=== PATIENT | male | born 1960 | race Caucasian/White ===

== ENCOUNTER 2020-03-17 13:34 | Inpatient (IN) | payer BC, OTHER ==
[2020-03-17] MEDS ORDERED: fentaNYL Citrate/PF 2,000 MCG in Sodium Chloride 0.9% 60 ML IV SCH ×2 (14:01→17:39)
--- NOTE | 2020-03-17 14:19 | RAD ---
CHEST 1 VIEW: Date: 03/17/2020 HISTORY: Dyspnea. COMPARISON: None. FINDINGS: There is a right perihilar air space opacity. Heart size is enlarged. Small left effusion. Atelectati c changes both lung bases. Endotracheal tube tip above the stephon 1.5 cm. Enteric tube tip below the diaphragm, though out of fi eld of view. Right subclavian central venous catheter tip projects over the mid SVC. IMPRESSION: 1. Right perihilar and infrahilar air space opacity concerning for infection. 2. Small left effusion. 3. Lung hypoinflation with bibasilar atelectasis. 4. Endotracheal tube tip above the stephon 1.5 cm. 5. Enteric tube tip below diaphragm, though out of field of view. POS: HOME
[2020-03-17] MEDS ORDERED: Fentanyl 100 MCG/2 ML VIAL ONE (14:23)
[2020-03-17 14:44] LABS: Bacteria/HPF 2+ HPF (None Seen); Bilirubin Negative (Negative); Blood, Urine 3+ (Negative); Clarity Turbid (Clear); Glucose, Urine (Dipstick) Normal (Negative); Ketone, Urine Negative (Negative); Leukocyte 75 Leu/uL (Negative); Mucous/LPF Rare LPF (<2+); Nitrite Negative (Negative); Protein, Urine (Dipstick) 200 mg/dL (Neg-Trace); RBC/HPF Greater than 50 HPF (0-3); Squamous Epithelial 0-3 HPF (0-3); WBC/HPF 21-50 HPF (0-3); pH, Urine 5.5 (5.0-9.0)
[2020-03-17 15:05] LABS: Actual Bicarbonate (HCO3a) 17.2 mEq/L (22-28); Analyzer IN Cardio ER; Base Excess (BEa) -11.3 mEq/L (-2.0 to +3.0); CO2 Tension 50.1 mmHg (35.0-45.0); Calcium, Ionized (arterial) 1.19 mmol/L (1.12-1.30); Carboxyhemoglobin (COHb) 0.3 gm% (0.0-3.0); Hemoglobin (Hb) 11.3 g/dL (14.0-18.0); O2 Tension (PaO2), arterial 246.7 mmHg (80.0-100.0); Potassium - ABG Lab 4.87 mmol/L (3.70-5.30)
[2020-03-17 15:06] LABS: Puncture Site LRA; pH, Arterial 7.15 (7.35-7.45)
[2020-03-17 15:08] LABS: ALV-art Gradient 403.675 (0-20)
[2020-03-17 15:17] LABS: Actual Bicarbonate (HCO3a) 16.9 mEq/L (22-28); Analyzer IN Cardio ER; Base Excess (BEa) -8.6 mEq/L (-2.0 to +3.0); CO2 Tension 34.9 mmHg (35.0-45.0); Calcium, Ionized (arterial) 1.12 mmol/L (1.12-1.30); Carboxyhemoglobin (COHb) 0.1 gm% (0.0-3.0); Hemoglobin (Hb) 10.1 g/dL (14.0-18.0); O2 Tension (PaO2), arterial 148.1 mmHg (80.0-100.0); Potassium - ABG Lab 4.49 mmol/L (3.70-5.30)
[2020-03-17] MEDS ORDERED: Piperacillin/Tazobactam 4.5 GM VIAL ONE (15:17)
[2020-03-17 15:18] LABS: Hemoglobin 9.2 g/dL (14.0-18.0); Mean Corpuscular HGB CONC 30.2 g/dL (32.0-36.0); Mean Corpuscular Hemoglobin 25.4 pg (27.0-31.0); Mean Corpuscular Volume 84.3 fL (78.0-98.0); Mean Platelet Volume 10.4 fL (7.4-10.4); Platelet Count 182 thou/uL (130-400); RBC Distribution Width 19.1 % (11.5-14.5); Red Blood Cell (RBC) Count 3.62 mill/uL (4.70-6.10)
[2020-03-17 15:21] LABS: ALV-art Gradient 307.375 (0-20); Puncture Site LRA
[2020-03-17] MEDS ORDERED: Sodium Bicarb 50 MEQ/50 ML Abboject 8.4% SYRINGE ONE (15:21)
[2020-03-17 15:24] LABS: SARS-CoV-2 NAA Rapid Test Not Detected (NotDetected)
[2020-03-17 15:37] LABS: ALT (SGPT) 58 U/L (8-55); AST (SGOT) 19 U/L (5-34); Albumin 3.1 g/dL (3.5-5.0); Alkaline Phosphatase 119 U/L (40-110); Anion Gap 15 mmol/L (10-20); Anisocytosis SLIGHT = 6-15 cells (100X) (0-5/hpf); BUN (Urea Nitrogen) 57 mg/dL (8.4-25.7); Band 10 % (5-11); Bilirubin, Total 0.5 mg/dL (0.2-1.2); Calc. Creatinine Clearance 0 mL/min (70-130); Calcium 7.8 mg/dL (7.8-10.44); Carbon Dioxide 18 mmol/L (22-29); Chloride 106 mmol/L (98-107); Estimated GFR-MDRD 25; Globulin 3.4 g/dL (2.4-3.5); Glucose 135 mg/dL (70-105); Hypochromia SLIGHT = 6-15 cells (100X) (0-5/hpf); Lymphocytes 2 % (21-51); MDiff Complete? YES; Monocytes 7 % (0-10); Neutrophil 81 % (42-75); Platelet Morphology Comment Appears Adequate; Polychromasia SLIGHT = 2-3 cells (100X) (0-2/hpf); Potassium 4.6 mmol/L (3.5-5.1); Protein, Total 6.5 g/dL (6.0-8.3); Sodium 134 mmol/L (136-145); Target Cells SLIGHT = 2-5 cells (100X) (0-1/hpf)
[2020-03-17] MEDS ORDERED: Iopamidol-370 76% 500 ML 1 ML ONE (15:45)
[2020-03-17 16:03] LABS: CKMB 2.8 ng/mL (0-6.6)
--- NOTE | 2020-03-17 16:49 | CT ---
CT ANGIOGRAM THORAX WITH IV CONTRAST AND 3-D RECONSTRUCTIONS CLINICAL INDICATION: Respiratory distress. Patient intubated. Decreased level of responsiveness. COMPARISON: None FINDINGS: Pulmonary arteries: No filling defects are seen in the pulmonary arteries to suggest a pulmonary embo rojelio. Aorta: Not well opacified as this study was performed for evaluation of the pulmonary arteries. Thora cic aorta is normal in caliber. Vascular calcifications are seen at the aortic arch. Lungs: There is bibasilar consolidation. Findings may be related to bibasilar pneumonia or aspiration pneumonitis. Mild interstitial and patchy densities are also seen in the right perihilar location. A calcified granuloma is seen in the posterior medial right upper lobe. Mediastinum: Endotracheal tube is noted in place with the tip at the level of the stephon. Nasogastric tube is noted in place which courses into the left upper quadrant on the debt collector image. The heart is mildly enlarged. Thyroid gland: Incompletely imaged hypodense nodule right lobe of thyroid gland with peripheral calci fication. Osseous structures: Mild degenerative changes in the thoracic spine. Chest wall: No abnormality visualized. Upper abdomen: Partially is otherwise abdominal structures in the upper abdomen demonstrate a grossly normal CT appearance for phase of imaging. IMPRESSION: 1. Bibasilar consolidation with interstitial and patchy densities in the right perihilar region. Find ings may be secondary to bibasilar pneumonia, but aspiration pneumonitis is a possibility. Follow-up to resolution is recommended. 2. Cardiomegaly. 3. No CT evidence for pulmonary embolus. 4. Endotracheal tube and nasogastric tubes are noted in place. Tip of the endotracheal tube is at the level of the stephon. The endotracheal tube should be slightly withdrawn. 5. Incompletely imaged peripherally calcified hypodense nodule right lobe of the thyroid gland. Follo w-up thyroid ultrasound is suggested.
[2020-03-17] MEDS ORDERED: Bacteriostatic Water 30 ML VIAL FS PRN (16:56)
--- NOTE | 2020-03-17 17:09 | CT ---
CT ABDOMEN WITH CONTRAST CT PELVIS WITH CONTRAST: DATE: 03/17/2020 HISTORY: 59-year-old male with no history available pertinent to the abdomen and pelvis provided, other than h ypercholesterolemia COMPARISON: None TECHNIQUE: IV injection of iodinated contrast media: administered. Oral contrast media:Not administered FINDINGS: The median arcuate ligament impinges on the origin of the celiac artery, causing high-grade stenosis there. There are consolidations at the posterior bases of bilateral lower lobes, with air bronchograms. No p leural effusion. No pneumoperitoneum, ascites, small bowel dilation, or colonic diverticulitis. Difficult to identify the appendix with certainty along adjacent collapsed ileal loops. No abdominal aortic aneurysm or dissection. No hydronephrosis. Cholecystectomy clips. Slightly diffusely low hepatic attenuation suggestive of fatty liver. Nodular liver margins consistent with cirrhosis. No acute pathology identified involving pancreas. No hydronephrosis. No adrenal nodule. No splenomegaly. IMPRESSION: 1) no acute findings within the abdominal or pelvic cavity. 2) bilateral lower lobe consolidations 3) probable hepatic cirrhosis. 4) suspicious for Median arcuate ligament syndrome.
[2020-03-17] MEDS ORDERED: Electrolyte Replacement Protoc 1 EACH EACH IVPB PRN (17:30)
[2020-03-17] MEDS ORDERED: Ventilator Sedation Protocol 1 EACH FS SCH (17:30)
[2020-03-17] MEDS ORDERED: Bisacodyl 5 MG TAB PO PRN (17:30)
[2020-03-17] MEDS ORDERED: Milk Of Magnesia 30 ML UDCUP PO PRN (17:30)
[2020-03-17] MEDS ORDERED: DISCONTINUE PREVIOUS NARCOTIC PAIN MEDICATIONS AND BENZODIAZEPINES FS SCH (17:39)
[2020-03-17] MEDS ORDERED: Fentanyl BOLUS 250 ML IVPB PRN (17:39)
[2020-03-17] MEDS ORDERED: Propofol 1,000 MG/100 ML VIAL IV PRN (17:39)
[2020-03-17] MEDS ORDERED: Morphine 2 MG/ML VIAL SLOW IVP PRN (17:39)
[2020-03-17] MEDS ORDERED: Propofol BOLUS 1,000 MG/100 ML VIAL IV PRN (17:39)
[2020-03-17] MEDS ORDERED: Lorazepam 2 MG/ML VIAL SLOW IVP PRN (17:39)
[2020-03-17 17:57] LABS: Troponin I 0.075 ng/mL (< 0.028)
[2020-03-17] MEDS: Azithromycin 500 MG in Sodium Chloride 0.9% 250 ML 250 ML IVPB SCH (18:10)
[2020-03-17] MEDS: cefTRIAXone\\ROCEPHIN 1 GM in Sodium Chloride 0.9% 100 ML IVPB SCH (18:11)
[2020-03-17] MEDS: methylPREDNISolone Sod Succ 40 MG VIAL IVP SCH ×2 (18:12→23:32)
[2020-03-17] MEDS: Sodium Chloride 0.9% 1,000 ML IV SCH (18:13)
[2020-03-17] MEDS ORDERED: Vancomycin 1 GM in Premix Bag 1 BAG IVPB SCH (20:00)
[2020-03-17] MEDS: Heparin 5,000 UNITS/ML VIAL SC SCH (20:28)
[2020-03-17 20:43] LABS: Troponin I 0.073 ng/mL (< 0.028)
[2020-03-17] MEDS ORDERED: Famotidine/PF 20 mg/2ml Vial SLOW IVP SCH (21:00)
[2020-03-17] MEDS ORDERED: Piperacillin/Tazobactam 3.375 GM in Sodium Chloride 0.9% 100 ML IVPB SCH (21:00)
--- NOTE | 2020-03-18 00:43 | CON ---
DATE OF CONSULTATION: HISTORY OF PRESENT ILLNESS: Cole Huynh is a 59-year-old obese gentleman from [place], [place], was transferred, to be intubated on the vent. I spoke to his , telephone #[phone]. She states the patient for the last several days had been having progressive shortness of breath, cough, and fever. He has had a stroke in 2013. 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 He has limitation with activity, longstanding history of tobacco abuse, most recently just slowed on his smoking. Previous history of pneumonia but no history of TB or asthma. Over the last several days, he got progressively more short of breath. I guess he presented to the ER in [place], [place], intubated shortly thereafter. Apparently, they said his influenza B titer was positive there. Repeat test here for influenza B, A and coronavirus all negative. He is on fentanyl drip. Sedated today. His is going to talk to the nurse and give the list of medicine. PAST MEDICAL HISTORY: CVA, COPD, CHF, peripheral neuropathy. Legally blind. He apparently has a diagnosis sleep apnea, but apparently no CPAP machine at home. PREVIOUS SURGERIES: Appendix mainly. No recent surgery. REVIEW OF SYSTEMS: Otherwise, unobtainable. PHYSICAL EXAMINATION: VITAL SIGNS: His sats are 92, blood pressure 120/70, pulse 72, respiratory rate of 12. CHEST: No wheezing. No crackles. CARDIAC: Normal S1, S2. No gallops. ABDOMEN: No masses. DIAGNOSTIC STUDIES: He had chest x-ray which showed cardiomegaly, left pleural effusion, right-sided infiltrates. CT angio showed bibasilar consolidation, cardiomegaly, no PE. LABORATORY DATA: His labs showed white count 21,000, H and H 9 and 30, platelet count 82. Urine shows infection. PO2 is 148, pCO2 is 34%, pH of 7.30 on 70%, PEEP of 7, creatinine 2.6, BUN 57, BNP 128. ASSESSMENT: 1. Respiratory failure, pneumonia. 2. Congestive heart failure. 3. Renal failure. 4. Peripheral neuropathy, history of stroke. Antibiotics, steroids, neb treatment initiated. We will get a list of his medicine from home and hopefully, we can start weaning the next several days. This is a 45-minute critical care time. Job ID: [id number]
--- NOTE | 2020-03-18 01:38 | HP ---
CHIEF COMPLAINT: Shortness of breath. HISTORY OF PRESENT ILLNESS: The patient is a 59-year-old male who was transferred from an outside facility for respiratory failure. The patient apparently appears to initially come into the ER at 7 a.m. from [place], [place], with complaints of shortness of breath. At this time, the patient's shortness of breath worsened. He went into respiratory distress and was intubated at [place], [place]. The patient was then transferred over here for further evaluation. Over in [place], [place], the patient was known to have a white count of 23,000. It appears the lactic acid was 16. The patient's blood cultures were done. He was also checked for flu, which was influenza B positive. However, his COVID rapid test was negative. PAST MEDICAL HISTORY: It appears that the patient has a history of strokes, has a history of hypertension, also has a history of heart failure and ME in spring, and hyperlipidemia. 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 SURGICAL HISTORY: He is legally blind, and has cardiac stent and cholecystectomy. SOCIAL HISTORY: He smokes apparently half a pack a day. Quit alcohol about 10 to 15 years ago. No recreational drug use. FAMILY HISTORY: No history of heart disease or strokes. REVIEW OF SYSTEMS: Unable to obtain. The patient is intubated. MEDICATIONS: Unable to obtain. The patient is intubated. LABORATORY DATA: Sodium of 134, potassium of 4.6, BUN of 57, creatinine was 2.65. Troponin x1 is 0.073. AST is 19, ALT is 58, alkaline phos is 119. TSH is 1.4. His lactic acid now is 0.9. His blood gas indicates the pH of 7.15, pCO2 of 50, pO2 of 246. This is on 5 of PEEP and 100% O2. WBCs of 21.0, hemoglobin of 9.2, hematocrit of 30.5, platelets of 182. His bands are 10. He had an occult done, was negative. He had a CT head, which was done which was negative. There was some concern for possible slurred speech. There was an x-ray that was done that showed some maybe diffuse pneumonitis on the right side. PHYSICAL EXAMINATION: VITAL SIGNS: Temperature of 98.8, heart rate of 69, 120/90, 100% oxygenation. GENERAL: He is intubated, sedated. HEENT: Pupils are pinpoint, but reactive bilaterally. CV: S1, S2 present. Regular. LUNGS: Clear to auscultation. No rhonchi or wheezes noted. ABDOMEN: Obese. Bowel sounds are present x2. EXTREMITIES: Mild to 1+ edema. Pedal pulses are present x2. NEUROVASCULAR: Unable to do since the patient is intubated. SKIN: Just minor cuts and bruises noted to bilateral lower extremities. ASSESSMENT AND PLAN: The patient is a 59-year-old male who initially presented to the hospital with respiratory failure. 1. Acute hypoxic hypercapnic respiratory failure. The patient was intubated in the field possibly most likely from pneumonia. Pulmonology has been consulted. The patient also has been started on some steroids. His coronavirus disease x2 rapid test including here and at the other hospital were negative. His influenza B was positive at the other hospital, however, here it was negative. He did have a CTA, which was negative for PE. However, it did indicate that the patient had bibasilar consolidation with interstitial patchy densities and right perihilar regional finding consistent with bibasilar pneumonia and possible concern of aspiration pneumonitis also. Cardiomegaly also was noted. The patient was started by Pulmonology with community-acquired pneumonia antibiotics. Steroids were also started. We will also do an echocardiogram. 2. Leukocytosis most likely secondary to the pneumonia. We will continue to monitor. 3. Anemia. His occult was negative. His MCV was normal. Unclear if this is a new or an ongoing process. 4. Chronic kidney disease. Unknown the patient's baseline creatinine. It was 2.25 at the outside hospital. We will start him on some gentle hydration, Garces catheter. Monitor intake and output. 5. Deep venous thrombosis prophylaxis. We will put the patient on subcutaneous heparin. 6. Mildly elevated troponins. This could be secondary to demand related. We will trend the troponins. EKG did not show any acute abnormalities, and also echocardiogram has been ordered for this patient. Job ID: [id number]
[2020-03-18 04:27] LABS: #Lymphocytes 0.5 thou/uL (1.20-3.40); #Monocytes 0.3 thou/uL (0.11-0.59); #Neutrophils 13.1 thou/uL (1.40-6.50); %Lymphocytes 3.5 % (21.0-51.0); %Monocytes 1.9 % (0.0-10.0); %Neutrophils 94.5 % (42.0-75.0); Hemoglobin 9.6 g/dL (14.0-18.0); Mean Corpuscular HGB CONC 29.1 g/dL (32.0-36.0); Mean Corpuscular Hemoglobin 24.5 pg (27.0-31.0); Mean Corpuscular Volume 84.1 fL (78.0-98.0); Mean Platelet Volume 10.8 fL (7.4-10.4); Platelet Count 180 thou/uL (130-400); RBC Distribution Width 18.9 % (11.5-14.5); Red Blood Cell (RBC) Count 3.91 mill/uL (4.70-6.10); White Blood Cell (WBC) Count 13.9 thou/uL (4.8-10.8)
[2020-03-18 04:45] LABS: ALT (SGPT) 52 U/L (8-55); AST (SGOT) 16 U/L (5-34); Alkaline Phosphatase 114 U/L (40-110); Anion Gap 14 mmol/L (10-20); BUN (Urea Nitrogen) 55 mg/dL (8.4-25.7); Bilirubin, Total 0.5 mg/dL (0.2-1.2); Calc. Creatinine Clearance 43 mL/min (70-130); Calcium 7.8 mg/dL (7.8-10.44); Carbon Dioxide 19 mmol/L (22-29); Chloride 106 mmol/L (98-107); Estimated GFR-MDRD 25; Globulin 3.6 g/dL (2.4-3.5); Glucose 149 mg/dL (70-105); Potassium 4.5 mmol/L (3.5-5.1); Protein, Total 6.6 g/dL (6.0-8.3); Sodium 134 mmol/L (136-145)
[2020-03-18] MEDS: methylPREDNISolone Sod Succ 40 MG VIAL IVP SCH ×3 (05:31→17:19)
[2020-03-18] MEDS: Sodium Chloride 0.9% 1,000 ML IV SCH ×2 (05:32→20:29)
[2020-03-18 07:57] LABS: Actual Bicarbonate (HCO3a) 21.7 mEq/L (22-28); Base Excess (BEa) -2.5 mEq/L (-2.0 to +3.0); CO2 Tension 35.6 mmHg (35.0-45.0); Calcium, Ionized (arterial) 1.11 mmol/L (1.12-1.30); Carboxyhemoglobin (COHb) 1.3 gm% (0.0-3.0); O2 Tension (PaO2), arterial 146.5 mmHg (80.0-100.0)
[2020-03-18 08:01] LABS: Puncture Site L.R.
--- NOTE | 2020-03-18 08:18 | RAD ---
CHEST 1 VIEW: INDICATION: History of intubation. COMPARISON: Prior study dated 03/17/2020. IMPRESSION: Tubes and lines are stable-appearing. Right perihilar airspace opacities persist. No pneumothorax i s evident. POS: BH
--- NOTE | 2020-03-18 08:26 | PRG ---
DATE OF SERVICE: 03/18/2020 SUBJECTIVE: Cole Huynh is a 59-year-old gentleman. This morning, he is sedated on the vent. Once sedation is withheld, he is more appropriate. He moves all 4 extremities. OBJECTIVE: VITAL SIGNS: Pulse 71, blood pressure 131/100, saturations 90%, respirations 18. CHEST: Decreased breath sounds. No wheezing. CARDIAC: Normal S1 and S2. No gallops. ABDOMEN: No masses. LABORATORY DATA: PO2 of 148, pCO2 of 34, pH 7.39, 60%, and PEEP of 5. His creatinine is 2, BUN is 55. His white count 13,000, slight left shift. X-ray shows a left pleural effusion, right lung pneumonia. ASSESSMENT: 1. Respiratory failure, chronic obstructive pulmonary disease, congestive heart failure. 2. Right lung pneumonia. 3. Cerebrovascular accident. PLAN: We are trying to get his medication from home. His is to his medication. The patient was transferred from out of the local area. We will try to continue antibiotics and steroids. Await for the echo. One-half hour of critical care time. Job ID: [id number]
[2020-03-18] MEDS ORDERED: Prevnar 13-Val Conj/PF 0.5 ML SYRINGE IM ONE (09:00)
[2020-03-18] MEDS ORDERED: DC Sedation Protocol FS ONE (09:21)
[2020-03-18] MEDS ORDERED: Lorazepam 2 MG/ML VIAL ONE (12:14)
[2020-03-18] MEDS ORDERED: Haloperidol Lactate 5 MG/ML VIAL ONE (12:22)
[2020-03-18] MEDS ORDERED: Haloperidol Lactate 5 MG/ML VIAL SLOW IVP SCH (12:30)
[2020-03-18] MEDS: Heparin 5,000 UNITS/ML VIAL SC SCH ×3 (14:24→20:29)
[2020-03-18] MEDS: TICAGRELOR 90 MG TABLET PO SCH ×2 (15:54→20:30)
[2020-03-18] MEDS: cefTRIAXone\\ROCEPHIN 1 GM in Sodium Chloride 0.9% 100 ML IVPB SCH (16:57)
[2020-03-18] MEDS: Azithromycin 500 MG in Sodium Chloride 0.9% 250 ML 250 ML IVPB SCH (17:18)
--- NOTE | 2020-03-18 17:48 | PDOC.HOSPP ---
- Subjective Encounter Date: 03/18/20 Encounter Time: 15:50 Subjective: pt up in bed drowsy - Objective Vital Signs & Weight: Vital Signs (12 hours) Temp Pulse Resp BP Pulse Ox 03/18/20 12:00 97.1 F L 03/18/20 09:21 86 26 H 92 L 03/18/20 08:03 71 136/110 H 03/18/20 08:00 16 98 03/18/20 07:44 71 20 131/106 H 99 03/18/20 07:00 96.9 F L 03/18/20 06:00 20 Weight Weight 3.517 oz Most Recent Monitor Data Heart Rate from ECG 77 NIBP 132/97 NIBP BP-Mean 108 Respiration from ECG 19 SpO2 99 I&O: 03/17/20 03/18/20 03/19/20 06:59 06:59 06:59 Intake Total 1311.4 7.8 Output Total 1200 865 Balance 111.4 -857.2 Result Diagrams: 03/18/20 03:40 03/18/20 03:40 Hospitalist ROS - Medication Medications: Active Medications Generic Name Dose Route Start Last Admin Trade Name Freq PRN Reason Stop Dose Admin Albuterol/Ipratropium 3 ml 03/17/20 19:00 03/18/20 13:10 Duoneb NEB Not Given [id number] TITUS Heparin Sodium (Porcine) 5,000 units 03/17/20 21:00 03/18/20 14:25 Heparin SC Not Given TID TITUS Sodium Chloride 1,000 mls @ 75 mls/hr 03/17/20 16:45 03/18/20 05:32 Normal Saline 0.9% IV 1,000 mls .[id number] TITUS Administration Azithromycin 500 mg/ Sodium 250 mls @ 250 mls/hr 03/17/20 18:00 03/18/20 17: 18 Chloride IVPB 250 mls 1800 TITUS Administration Ceftriaxone Sodium 1 gm/ 100 mls @ 200 mls/hr 03/17/20 17:00 03/18/20 16:57 Sodium Chloride IVPB 100 mls 1700 TITUS Administration Dexmedetomidine HCl 400 mcg/ 100 mls @ 0 mls/hr 03/18/20 12:30 03/18/20 12:48 Sodium Chloride IVPB 100 mls INF TITUS Administration Protocol Titrate Methylprednisolone Sodium Succinate 40 mg 03/17/20 18:00 03/18/20 17:19 Solu-Medrol IVP 40 mg Q6HR TITUS Administration Ticagrelor 90 mg 03/18/20 15:00 03/18/20 15:54 Brilinta PO Not Given TID TITUS - Exam Heart: negative: RRR, no murmur, no gallops, no rubs, normal peripheral pulses, irregular, diminshed peripheral pulses, murmur present, II/IV, III/IV Respiratory: negative: CTAB, no wheezes, no rales, no ronchi, normal chest expansion, no tachypnea, normal percussion, rales, rhonchi, tachypneic, wheezes Gastrointestinal: negative: soft, non-tender, non-distended, normal bowel sounds , no palpable masses, no hepatomegaly, no splenomegaly, no bruit, no guarding, no rigidity, tender to palpation, distended, diminished bowl sounds, voluntary guarding Hosp A/P (1) Acute respiratory failure with hypoxia and hypercapnia Code(s): J96.01 - ACUTE RESPIRATORY FAILURE WITH HYPOXIA; J96.02 - ACUTE RESPIRATORY FAILURE WITH HYPERCAPNIA Status: Acute (2) Pneumonia Code(s): J18.9 - PNEUMONIA, UNSPECIFIED ORGANISM Status: Acute (3) CAD (coronary artery disease) Code(s): I25.10 - ATHSCL HEART DISEASE OF [place] CORONARY ARTERY W/O ANG PCTRS Status: Acute (4) HTN (hypertension) Code(s): I10 - ESSENTIAL (PRIMARY) HYPERTENSION Status: Acute (5) CKD (chronic kidney disease) stage 3, GFR 30-59 ml/min Code(s): N18.3 - CHRONIC KIDNEY DISEASE, STAGE 3 (MODERATE) Status: Acute - Plan pt extubated today, got violent and had to be restraint and he was given some ativan. will continue abx for now. Renal function stable. pt on brilinta will continue.
[2020-03-18] MEDS: Carvedilol 25 MG TAB PO SCH (20:29)
[2020-03-18] MEDS: Gabapentin 300 MG CAP PO SCH (20:30)
[2020-03-18] MEDS ORDERED: Famotidine/PF 20 mg/2ml Vial SLOW IVP SCH (21:00)
[2020-03-18] MEDS ORDERED: Furosemide 40 MG TAB PO SCH (21:00)
[2020-03-19] MEDS: methylPREDNISolone Sod Succ 40 MG VIAL IVP SCH ×2 (00:16→05:16)
[2020-03-19] MEDS: Haloperidol Lactate 5 MG/ML VIAL SLOW IVP PRN ×2 (00:16→04:03)
[2020-03-19 05:05] LABS: #Lymphocytes 0.6 thou/uL (1.20-3.40); #Monocytes 0.5 thou/uL (0.11-0.59); #Neutrophils 10.6 thou/uL (1.40-6.50); %Eosinophils 0.1 % (0.0-10.0); %Lymphocytes 4.9 % (21.0-51.0); %Neutrophils 90.9 % (42.0-75.0); Hemoglobin 9.9 g/dL (14.0-18.0); Mean Corpuscular HGB CONC 28.9 g/dL (32.0-36.0); Mean Corpuscular Hemoglobin 24.2 pg (27.0-31.0); Mean Corpuscular Volume 83.6 fL (78.0-98.0); Mean Platelet Volume 11.2 fL (7.4-10.4); Platelet Count 193 thou/uL (130-400); RBC Distribution Width 18.7 % (11.5-14.5); White Blood Cell (WBC) Count 11.6 thou/uL (4.8-10.8)
[2020-03-19 05:14] LABS: ALT (SGPT) 48 U/L (8-55); AST (SGOT) 21 U/L (5-34); Albumin 3.3 g/dL (3.5-5.0); Alkaline Phosphatase 105 U/L (40-110); Anion Gap 18 mmol/L (10-20); BUN (Urea Nitrogen) 61 mg/dL (8.4-25.7); Bilirubin, Total 0.4 mg/dL (0.2-1.2); Calc. Creatinine Clearance 0 mL/min (70-130); Calcium 8.4 mg/dL (7.8-10.44); Carbon Dioxide 17 mmol/L (22-29); Chloride 110 mmol/L (98-107); Estimated GFR-MDRD 26; Globulin 3.6 g/dL (2.4-3.5); Glucose 177 mg/dL (70-105); Potassium 4.6 mmol/L (3.5-5.1); Protein, Total 6.9 g/dL (6.0-8.3); Sodium 140 mmol/L (136-145)
[2020-03-19] MEDS: Sodium Chloride 0.9% 1,000 ML IV SCH (08:22)
[2020-03-19] MEDS ORDERED: NIFEdipine XL 30 MG TAB PO SCH ×2 (09:00→13:30)
--- NOTE | 2020-03-19 09:07 | PRG ---
DATE OF SERVICE: 03/19/2020 SUBJECTIVE: Cole Huynh this morning is in the ICU. He is on restraints. He was agitated yesterday, requiring Haldol and Precedex to control his agitation. OBJECTIVE: VITAL SIGNS: Saturations are 100%, he is on BiPAP. Pulse is 82, blood pressure 150/80, and respirations 16. His I's and O's have been positive. CHEST: Decreased breath sounds. No wheezing. CARDIAC: Normal S1 and S2. No gallops. ABDOMEN: No masses. LABORATORY DATA: BUN and creatinine 61 and 2.59 and albumin 3.3. IMPRESSION: Congestive heart failure, ejection fraction 20%, metabolic encephalopathy, chronic obstructive pulmonary disease, pneumonia, and azotemia. PLAN: Switch him over to oral antibiotics, steroids, PT, supportive care. Hopefully, if his nauseous status improves, he can be transferred out of the ICU and eventually home. One-half hour of critical care time. Job ID: [id number]
--- NOTE | 2020-03-19 09:44 | RAD ---
Chest one view HISTORY: Dyspnea. Follow-up. COMPARISON: 03/18/2020. FINDINGS: Cardiac silhouette is magnified and upper limits of normal in size. Pulmonary vasculature a re less engorged than on the prior study. Mild patchy bibasilar infiltrates are less dense. Mediastinum is midline. Endotracheal catheter and nasogastric tube no longer visible. Right subclavia n central venous catheter remains in place. No evidence of pneumothorax. IMPRESSION : Interval removal of the endotracheal catheter and nasogastric tube. Partial clearing of bibasilar infiltrates and pulmonary vascular congestion.
[2020-03-19] MEDS: Heparin 5,000 UNITS/ML VIAL SC SCH ×3 (09:50→20:55)
[2020-03-19] MEDS: TICAGRELOR 90 MG TABLET PO SCH ×3 (09:51→20:54)
[2020-03-19] MEDS: Cefdinir 300 MG CAP PO SCH ×2 (09:51→20:55)
[2020-03-19] MEDS: DULoxetine 60 MG CAP PO SCH (09:51)
[2020-03-19] MEDS: Gabapentin 300 MG CAP PO SCH ×3 (09:51→20:55)
[2020-03-19] MEDS: Carvedilol 25 MG TAB PO SCH ×2 (09:55→20:55)
--- NOTE | 2020-03-19 09:59 | CON ---
DATE OF CONSULTATION: 03/19/2020 REASON FOR CONSULTATION: Coronary artery disease, congestive heart failure, pneumonia, confusion. HISTORY OF PRESENT ILLNESS: Mr. Huynh is a 59-year-old gentleman with history apparently of coronary artery disease and coronary stenting, admitted to the hospital with difficulty of breathing, respiratory failure. He presented in [place], [place], but apparently the usual place he is care for did not have beds, therefore he was sent here. His white count was 23,000 and high lactic acid. Influenza B was positive. COVID test was negative. PAST HISTORY: History of hypertension, heart failure, myocardial infarction in 2019, chronic renal failure. Reportedly legally blind. PAST SURGICAL HISTORY: Has previous coronary stent, details not available. SOCIAL HISTORY: Smokes half-pack cigarettes per day. FAMILY HISTORY: Negative for heart disease or strokes. REVIEW OF SYSTEMS: Unobtainable. He is confused and disoriented. MEDICATIONS: See nurses' note. PERTINENT LABORATORY: On the rhythm strip, it is normal sinus rhythm. I do not see an EKG in the chart. Hemoglobin is 9.9. Creatinine is 2.59, estimated GFR is 26. Troponin 0.075. BNP 1287. Chest x-ray, right perihilar space opacity. The patient is confused and disoriented, unable to take oral medicines this morning, became combative yesterday. ASSESSMENT: 1. Thought to have pneumonia. 2. History of congestive heart failure. 3. Renal failure, stage 4. 4. Confusion and disorientation. PLAN: Hopefully, the patient can be put back on his oral medicines. Prognosis is guarded with severe multiple medical problems. No other recommendations presently. We will try to either find the previous EKG or do another this morning. Job ID: [id number]
[2020-03-19] MEDS ORDERED: Lisinopril 10 MG TAB PO SCH (12:30)
[2020-03-19] MEDS: hydrALAZINE 20 MG/ML VIAL SLOW IVP PRN (13:06)
--- NOTE | 2020-03-19 18:29 | PDOC.HOSPP ---
- Subjective Encounter Date: 03/19/20 Encounter Time: 11:15 Subjective: pt on bipap - Objective Vital Signs & Weight: Vital Signs (12 hours) Temp Pulse Resp BP Pulse Ox 03/19/20 15:00 97.8 F 03/19/20 14:50 63 03/19/20 14:03 63 18 100 03/19/20 14:02 65 18 100 03/19/20 13:07 136/110 H 03/19/20 13:06 62 03/19/20 12:00 97.2 F L 03/19/20 09:52 62 03/19/20 08:31 62 20 100 03/19/20 08:29 62 23 H 100 03/19/20 08:00 95 03/19/20 07:00 97.6 F Weight Weight 3.517 oz Most Recent Monitor Data Heart Rate from ECG 65 NIBP 124/91 NIBP BP-Mean 102 Respiration from ECG 16 SpO2 99 I&O: 03/18/20 03/19/20 03/20/20 06:59 06:59 06:59 Intake Total 1311.4 2392.8 1464 Output Total 1200 1500 780 Balance 111.4 892.8 684 Result Diagrams: 03/19/20 04:32 03/19/20 04:32 Hospitalist ROS - Review of Systems Other: on bipap - Medication Medications: Active Medications Generic Name Dose Route Start Last Admin Trade Name Freq PRN Reason Stop Dose Admin Albuterol/Ipratropium 3 ml 03/17/20 19:00 03/19/20 14:02 Duoneb NEB 3 ml [id number] TITUS Administration Carvedilol 25 mg 03/18/20 21:00 03/19/20 09:55 Coreg PO 25 mg BID TITUS Administration Cefdinir 300 mg 03/19/20 09:00 03/19/20 09:51 Omnicef PO 300 mg BID TITUS Administration Duloxetine HCl 60 mg 03/19/20 09:00 03/19/20 09:51 Cymbalta PO 60 mg DAILY TITUS Administration Gabapentin 600 mg 03/18/20 21:00 03/19/20 14:51 Neurontin PO 600 mg TID TITUS Administration Haloperidol Lactate 5 mg 03/18/20 12:27 03/19/20 04:03 Haldol SLOW IVP 5 mg Q4H PRN Administration Agitation Heparin Sodium (Porcine) 5,000 units 03/17/20 21:00 03/19/20 14:51 Heparin SC 5,000 units TID TITUS Administration Hydralazine HCl 10 mg 03/19/20 12:23 03/19/20 13:06 Apresoline SLOW IVP 10 mg Q4H PRN Administration Blood Pressure Dexmedetomidine HCl 400 mcg/ 100 mls @ 0 mls/hr 03/18/20 12:30 03/19/20 15:28 Sodium Chloride IVPB 100 mls INF TITUS Administration Protocol Titrate Pantoprazole Sodium 40 mg 03/18/20 21:00 03/19/20 09:51 Protonix PO 40 mg BID TITUS Administration Ticagrelor 90 mg 03/18/20 15:00 03/19/20 14:51 Brilinta PO 90 mg TID TITUS Administration - Exam Neck: negative: supple, symmetric, no JVD, no thyromegaly, no lymphadenopathy, no carotid bruit, JVD Heart: negative: RRR, no murmur, no gallops, no rubs, normal peripheral pulses, irregular, diminshed peripheral pulses, murmur present, II/IV, III/IV Respiratory: rales Gastrointestinal: negative: soft, non-tender, non-distended, normal bowel sounds , no palpable masses, no hepatomegaly, no splenomegaly, no bruit, no guarding, no rigidity, tender to palpation, distended, diminished bowl sounds, voluntary guarding Hosp A/P (1) Acute respiratory failure with hypoxia and hypercapnia Code(s): J96.01 - ACUTE RESPIRATORY FAILURE WITH HYPOXIA; J96.02 - ACUTE RESPIRATORY FAILURE WITH HYPERCAPNIA Status: Acute (2) Pneumonia Code(s): J18.9 - PNEUMONIA, UNSPECIFIED ORGANISM Status: Acute (3) CAD (coronary artery disease) Code(s): I25.10 - ATHSCL HEART DISEASE OF [place] CORONARY ARTERY W/O ANG PCTRS Status: Acute (4) HTN (hypertension) Code(s): I10 - ESSENTIAL (PRIMARY) HYPERTENSION Status: Acute (5) CKD (chronic kidney disease) stage 3, GFR 30-59 ml/min Code(s): N18.3 - CHRONIC KIDNEY DISEASE, STAGE 3 (MODERATE) Status: Acute - Plan pt extubated today, got violent and had to be restraint and he was given some ativan. will continue abx for now. Renal function stable. pt on brilinta will continue. 03/19 pt on precedex since he is combative. BNP is elevated but he is on lasix. cardiology consulted. creatinine is slowly trending down. Not sure pt's baseline. will stop lisinopril given his aisha. not sure about his baseline. spoke with and asked her to get recent lab work from her pcp's office.
[2020-03-19] MEDS: risperiDONE 0.25 MG TAB PO SCH (20:54)
[2020-03-19] MEDS: Atorvastatin Calcium 40 MG TAB PO SCH (20:54)
[2020-03-19] MEDS: hydrALAZINE 25 MG TAB PO SCH (20:54)
[2020-03-19] MEDS: Sodium Bicarbonate Tab 325 MG TAB PO SCH (20:55)
[2020-03-19] MEDS ORDERED: NIFEdipine XL 60 MG TAB PO SCH (21:00)
[2020-03-19] MEDS ORDERED: Famotidine 20 MG TAB PO SCH (21:00)
[2020-03-19] MEDS ORDERED: Isosorbide Dinitrate 5 MG TAB PO SCH (21:00)
[2020-03-20] MEDS: Haloperidol Lactate 5 MG/ML VIAL SLOW IVP PRN ×3 (01:09→17:26)
[2020-03-20 04:45] LABS: #Lymphocytes 0.9 thou/uL (1.20-3.40); #Monocytes 0.9 thou/uL (0.11-0.59); #Neutrophils 6.3 thou/uL (1.40-6.50); %Eosinophils 0.4 % (0.0-10.0); %Lymphocytes 10.9 % (21.0-51.0); %Monocytes 10.9 % (0.0-10.0); %Neutrophils 77.9 % (42.0-75.0); Hemoglobin 9.1 g/dL (14.0-18.0); Mean Corpuscular HGB CONC 29.4 g/dL (32.0-36.0); Mean Corpuscular Hemoglobin 24.1 pg (27.0-31.0); Platelet Count 174 thou/uL (130-400); RBC Distribution Width 18.5 % (11.5-14.5); Red Blood Cell (RBC) Count 3.78 mill/uL (4.70-6.10); White Blood Cell (WBC) Count 8.1 thou/uL (4.8-10.8)
[2020-03-20 04:55] VITALS: BMI 29.8
[2020-03-20 05:10] LABS: ALT (SGPT) 50 U/L (8-55); AST (SGOT) 35 U/L (5-34); Albumin 2.8 g/dL (3.5-5.0); Alkaline Phosphatase 88 U/L (40-110); Anion Gap 12 mmol/L (10-20); BUN (Urea Nitrogen) 67 mg/dL (8.4-25.7); Bilirubin, Total 0.5 mg/dL (0.2-1.2); Calc. Creatinine Clearance 48 mL/min (70-130); Calcium 7.7 mg/dL (7.8-10.44); Carbon Dioxide 19 mmol/L (22-29); Chloride 111 mmol/L (98-107); Estimated GFR-MDRD 27; Glucose 110 mg/dL (70-105); Potassium 4.5 mmol/L (3.5-5.1); Protein, Total 5.8 g/dL (6.0-8.3); Sodium 137 mmol/L (136-145)
--- NOTE | 2020-03-20 08:03 | RAD ---
RADIOGRAPH CHEST 1 VIEW: DATE: 03/20/2020 TIME: 5:47 AM HISTORY: 59-year-old male with dyspnea COMPARISON: 03/19/2020 FINDINGS: Right subclavian central vascular catheter remains. With lordotic positioning, there is greater magni fication of the cardiac shadow now. New finding of faint right midlung zone mild infiltrate. No pneumothorax. Lateral costophrenic angles remain sharp. IMPRESSION: Questionable interval development of mild right-sided faint infiltrate. Recommend continued follow-up .
[2020-03-20] MEDS ORDERED: Lisinopril 10 MG TAB PO SCH (09:00)
--- NOTE | 2020-03-20 09:21 | PRG ---
DATE OF SERVICE: 03/20/2020 SUBJECTIVE: This morning, he is awake, responsive, less agitated. He is on BiPAP. OBJECTIVE: VITAL SIGNS: Blood pressure respiratory rate 18, sats are 98%. His I's and O's have been consistently negative. CHEST: Decreased breath sounds. No wheezing. CARDIAC: Normal S1 and S2. No gallops. ABDOMEN: No masses. LABORATORY DATA: His creatinine is 2.47, BUN is 67, slightly elevated. EF is 20%. X-ray still shows cardiomegaly, questionable pneumonia. His white count is 8000. ASSESSMENT: 1. Respiratory failure. 2. Renal failure. 3. Encephalopathy. 4. Chronic obstructive pulmonary disease. PLAN: We are watching his BUN and creatinine. If this got worsen, we may have to consider holding his Zestril. Otherwise, hopefully we can switch him over to nasal O2. Avoid excessive sedation. PT, supportive care. One-half hour of critical time. Job ID: [id number]
[2020-03-20] MEDS: Carvedilol 25 MG TAB PO SCH (10:30)
[2020-03-20] MEDS: Sodium Bicarbonate Tab 325 MG TAB PO SCH ×2 (10:31→17:30)
[2020-03-20] MEDS: DULoxetine 60 MG CAP PO SCH (10:31)
[2020-03-20] MEDS: Gabapentin 300 MG CAP PO SCH ×3 (10:31→20:26)
[2020-03-20] MEDS: risperiDONE 0.25 MG TAB PO SCH ×2 (10:31→20:27)
[2020-03-20] MEDS: predniSONE 20 MG TAB PO SCH (10:32)
[2020-03-20] MEDS: Cefdinir 300 MG CAP PO SCH ×2 (10:32→20:27)
[2020-03-20] MEDS: Heparin 5,000 UNITS/ML VIAL SC SCH ×3 (10:32→20:27)
[2020-03-20] MEDS: TICAGRELOR 90 MG TABLET PO SCH ×3 (10:32→20:27)
[2020-03-20] MEDS: Furosemide 40 MG TAB PO SCH (10:33)
--- NOTE | 2020-03-20 13:25 | PRG ---
DATE OF SERVICE: 03/20/2020 SUBJECTIVE: Mr. Huynh remains confused and disoriented. He is on Precedex. Now, he is sleeping. REVIEW OF SYSTEMS: Not obtainable, he is sleeping. OBJECTIVE: VITAL SIGNS: His blood pressure is 122/87, pulse is 57, right now it is sinus bradycardia. ABDOMEN: Soft and nontender, EXTREMITIES: No edema. ASSESSMENT: 1. Probable pneumonia. 2. History of coronary artery disease with previous stenting. 3. Ejection fraction is depressed at 20% to 25%. 4. Sinus bradycardia. PLAN: 1. Reduce carvedilol in view of the heart rate. 2. Continue aspirin. 3. Continue ticagrelor for now. Prognosis guarded in this gentleman. Job ID: [id number]
--- NOTE | 2020-03-20 16:55 | PDOC.HOSPP ---
- Subjective Encounter Date: 03/20/20 Encounter Time: 10:45 Subjective: pt more awake and following commands and moving all ext. His speech is not slurred. He has no teeth. - Objective Vital Signs & Weight: Vital Signs (12 hours) Temp Pulse Resp Pulse Ox 03/20/20 13:53 60 18 03/20/20 12:00 97.8 F 03/20/20 09:10 57 L 18 100 03/20/20 08:00 97.1 F L 100 Weight Weight 225 lb 4.999 oz Most Recent Monitor Data Heart Rate from ECG 53 NIBP 119/82 NIBP BP-Mean 94 Respiration from ECG 14 SpO2 94 I&O: 03/19/20 03/20/20 03/21/20 06:59 06:59 06:59 Intake Total 2392.8 2218 Output Total 1500 1365 515 Balance 892.8 853 -515 Result Diagrams: 03/20/20 04:10 03/20/20 04:10 Hospitalist ROS - Review of Systems Cardiovascular: denies: chest pain, palpitations, orthopnea, paroxysmal noc. dyspnea, edema, light headedness, other Gastrointestinal: denies: nausea, vomiting, abdominal pain, diarrhea, constipation, melena, hematochezia, other Genitourinary: denies: dysuria, frequency, incontinence, hematuria, retention, other - Medication Medications: Active Medications Generic Name Dose Route Start Last Admin Trade Name Freq PRN Reason Stop Dose Admin Albuterol/Ipratropium 3 ml 03/17/20 19:00 03/20/20 13:53 Duoneb NEB 3 ml [id number] TITUS Administration Atorvastatin Calcium 40 mg 03/19/20 21:00 03/19/20 20:54 Lipitor PO 40 mg HS TITUS Administration Cefdinir 300 mg 03/19/20 09:00 03/20/20 10:32 Omnicef PO 300 mg BID TITUS Administration Duloxetine HCl 60 mg 03/19/20 09:00 03/20/20 10:31 Cymbalta PO 60 mg DAILY TITUS Administration Furosemide 40 mg 03/20/20 07:30 03/20/20 10:33 Lasix PO Not Given DAILY-AC TITUS Gabapentin 600 mg 03/18/20 21:00 03/20/20 10:31 Neurontin PO 600 mg TID TITUS Administration Haloperidol Lactate 5 mg 03/18/20 12:27 03/20/20 12:16 Haldol SLOW IVP 5 mg Q4H PRN Administration Agitation Heparin Sodium (Porcine) 5,000 units 03/17/20 21:00 03/20/20 10:32 Heparin SC 5,000 units TID TITUS Administration Hydralazine HCl 10 mg 03/19/20 12:23 03/19/20 13:06 Apresoline SLOW IVP 10 mg Q4H PRN Administration Blood Pressure Hydralazine HCl 50 mg 03/19/20 21:00 03/19/20 20:54 Apresoline PO 50 mg BID TITUS Administration Dexmedetomidine HCl 400 mcg/ 100 mls @ 0 mls/hr 03/18/20 12:30 03/20/20 05:47 Sodium Chloride IVPB 100 mls INF TITUS Administration Protocol Titrate Pantoprazole Sodium 40 mg 03/18/20 21:00 03/20/20 10:31 Protonix PO 40 mg BID TITUS Administration Prednisone 20 mg 03/20/20 08:00 03/20/20 10:32 Prednisone PO 20 mg QAM-WM TITUS Administration Risperidone 0.25 mg 03/19/20 21:00 03/20/20 10:31 Risperidone PO 0.25 mg BID TITUS Administration Sodium Bicarbonate 650 mg 03/19/20 21:00 03/20/20 10:31 Bicarbonate, Sodium PO 650 mg TID TITUS Administration Ticagrelor 90 mg 03/18/20 15:00 03/20/20 10:32 Brilinta PO 90 mg TID TITUS Administration - Exam Neck: negative: supple, symmetric, no JVD, no thyromegaly, no lymphadenopathy, no carotid bruit, JVD Heart: negative: RRR, no murmur, no gallops, no rubs, normal peripheral pulses, irregular, diminshed peripheral pulses, murmur present, II/IV, III/IV Respiratory: negative: CTAB, no wheezes, no rales, no ronchi, normal chest expansion, no tachypnea, normal percussion, rales, rhonchi, tachypneic, wheezes Gastrointestinal: negative: soft, non-tender, non-distended, normal bowel sounds , no palpable masses, no hepatomegaly, no splenomegaly, no bruit, no guarding, no rigidity, tender to palpation, distended, diminished bowl sounds, voluntary guarding Hosp A/P (1) Acute respiratory failure with hypoxia and hypercapnia Code(s): J96.01 - ACUTE RESPIRATORY FAILURE WITH HYPOXIA; J96.02 - ACUTE RESPIRATORY FAILURE WITH HYPERCAPNIA Status: Acute (2) Pneumonia Code(s): J18.9 - PNEUMONIA, UNSPECIFIED ORGANISM Status: Acute (3) CAD (coronary artery disease) Code(s): I25.10 - ATHSCL HEART DISEASE OF [place] CORONARY ARTERY W/O ANG PCTRS Status: Acute (4) HTN (hypertension) Code(s): I10 - ESSENTIAL (PRIMARY) HYPERTENSION Status: Acute (5) CKD (chronic kidney disease) stage 3, GFR 30-59 ml/min Code(s): N18.3 - CHRONIC KIDNEY DISEASE, STAGE 3 (MODERATE) Status: Acute - Plan pt extubated today, got violent and had to be restraint and he was given some ativan. will continue abx for now. Renal function stable. pt on brilinta will continue. 03/19 pt on precedex since he is combative. BNP is elevated but he is on lasix. cardiology consulted. creatinine is slowly trending down. Not sure pt's baseline. will stop lisinopril given his aisha. not sure about his baseline. spoke with and asked her to get recent lab work from her pcp's office. 03/20 pt's baseline creatinine per pcp is 2.09 in january 2020. pt still on precedex pt is being weaned off. Stent was in placed in 2018. will hold bp meds his bp is low. will hold Lasix for now. pt is still npo if his mentation improves will reevaluate his swallowing.
[2020-03-20] MEDS: Atorvastatin Calcium 40 MG TAB PO SCH (20:27)
[2020-03-21 04:21] LABS: #Eosinphils 0.1 thou/uL (0.0-0.7); #Lymphocytes 0.6 thou/uL (1.20-3.40); #Monocytes 0.7 thou/uL (0.11-0.59); %Basophils 0.1 % (0.0-1.0); %Eosinophils 0.7 % (0.0-10.0); %Lymphocytes 7.4 % (21.0-51.0); %Monocytes 7.8 % (0.0-10.0); Hemoglobin 9.4 g/dL (14.0-18.0); Mean Corpuscular HGB CONC 29.8 g/dL (32.0-36.0); Mean Corpuscular Hemoglobin 24.2 pg (27.0-31.0); Mean Corpuscular Volume 81.3 fL (78.0-98.0); Mean Platelet Volume 10.8 fL (7.4-10.4); Platelet Count 189 thou/uL (130-400); RBC Distribution Width 18.7 % (11.5-14.5); White Blood Cell (WBC) Count 8.3 thou/uL (4.8-10.8)
[2020-03-21 04:40] LABS: ALT (SGPT) 56 U/L (8-55); AST (SGOT) 29 U/L (5-34); Albumin 3.2 g/dL (3.5-5.0); Alkaline Phosphatase 94 U/L (40-110); Anion Gap 14 mmol/L (10-20); BUN (Urea Nitrogen) 64 mg/dL (8.4-25.7); Bilirubin, Total 0.7 mg/dL (0.2-1.2); Calc. Creatinine Clearance 53 mL/min (70-130); Calcium 8.2 mg/dL (7.8-10.44); Carbon Dioxide 18 mmol/L (22-29); Chloride 111 mmol/L (98-107); Estimated GFR-MDRD 31; Globulin 3.2 g/dL (2.4-3.5); Glucose 101 mg/dL (70-105); Potassium 4.5 mmol/L (3.5-5.1); Protein, Total 6.4 g/dL (6.0-8.3); Sodium 138 mmol/L (136-145)
--- NOTE | 2020-03-21 07:22 | PDOC.HOSPP ---
- Subjective Encounter Date: 03/21/20 Encounter Time: 06:30 Subjective: no overnight events. This morning, calmer off precedex. Has no complaints. - Objective Vital Signs & Weight: Vital Signs (12 hours) Temp Pulse Resp Pulse Ox 03/21/20 04:00 97.7 F 03/21/20 00:00 97.5 F L 03/20/20 23:58 68 16 100 03/20/20 20:00 97.5 F L 100 03/20/20 19:23 60 16 100 Weight Weight 220 lb 14.451 oz Most Recent Monitor Data Heart Rate from ECG 63 NIBP 155/97 NIBP BP-Mean 116 Respiration from ECG 10 SpO2 100 I&O: 03/20/20 03/21/20 03/22/20 06:59 06:59 06:59 Intake Total 2218 808.9 Output Total 1365 1700 Balance 853 -891.1 Result Diagrams: 03/21/20 03:50 03/21/20 03:50 Hospitalist ROS - Review of Systems Constitutional: denies: fever, chills, sweats Respiratory: denies: cough, dry, shortness of breath Cardiovascular: denies: chest pain, palpitations, orthopnea Gastrointestinal: denies: nausea, vomiting, abdominal pain Genitourinary: denies: dysuria, frequency, hematuria - Medication Medications: Active Medications Generic Name Dose Route Start Last Admin Trade Name Freq PRN Reason Stop Dose Admin Albuterol/Ipratropium 3 ml 03/17/20 19:00 03/20/20 23:58 Duoneb NEB 3 ml [id number] TITUS Administration Atorvastatin Calcium 40 mg 03/19/20 21:00 03/20/20 20:27 Lipitor PO 40 mg HS TITUS Administration Cefdinir 300 mg 03/19/20 09:00 03/20/20 20:27 Omnicef PO 300 mg BID TITUS Administration Duloxetine HCl 60 mg 03/19/20 09:00 03/20/20 10:31 Cymbalta PO 60 mg DAILY TITUS Administration Furosemide 40 mg 03/20/20 07:30 03/20/20 10:33 Lasix PO Not Given DAILY-AC TITUS Gabapentin 600 mg 03/18/20 21:00 03/20/20 20:26 Neurontin PO 600 mg TID TITUS Administration Haloperidol Lactate 5 mg 03/18/20 12:27 03/20/20 17:26 Haldol SLOW IVP 5 mg Q4H PRN Administration Agitation Heparin Sodium (Porcine) 5,000 units 03/17/20 21:00 03/20/20 20:27 Heparin SC 5,000 units TID TITUS Administration Hydralazine HCl 10 mg 03/19/20 12:23 03/19/20 13:06 Apresoline SLOW IVP 10 mg Q4H PRN Administration Blood Pressure Hydralazine HCl 50 mg 03/19/20 21:00 03/19/20 20:54 Apresoline PO 50 mg BID TITUS Administration Dexmedetomidine HCl 400 mcg/ 100 mls @ 0 mls/hr 03/18/20 12:30 03/20/20 20:41 Sodium Chloride IVPB 100 mls INF TITUS Administration Protocol Titrate Pantoprazole Sodium 40 mg 03/18/20 21:00 03/20/20 20:27 Protonix PO 40 mg BID TITUS Administration Prednisone 20 mg 03/20/20 08:00 03/20/20 10:32 Prednisone PO 20 mg QAM-WM TITUS Administration Risperidone 0.25 mg 03/19/20 21:00 03/20/20 20:27 Risperidone PO 0.25 mg BID TITUS Administration Ticagrelor 90 mg 03/18/20 15:00 03/20/20 20:27 Brilinta PO 90 mg TID TITUS Administration - Exam General Appearance: NAD, awake alert Neck: no JVD Heart: RRR, no murmur, no gallops, no rubs Respiratory: CTAB, no wheezes, no rales, no ronchi Gastrointestinal: soft, non-tender, non-distended Extremities: no edema Psychiatric: normal affect, normal behavior, oriented to person, oriented to place. negative: oriented to time Hosp A/P - Plan #HFrEF 20-25% -cardiology onboard; deferring decision re: AICD/life vest to cardiology #HTN #CKD -blood pressure remains elevated; in context of CAD/CKD may benefit from ACEI considering renal function at baseline -considering appears euvolemic, gentle IVF may be beneficial considering limited oral intake and uremia #agitation -currently off precedex; calm and cooperative -continue risperidone; attempt to transition haldol from IV to oral or IM considering lesser chances of side effects including arrhythmias #disposition transfer to telemetry
[2020-03-21] MEDS: DULoxetine 60 MG CAP PO SCH (08:15)
[2020-03-21] MEDS: Cefdinir 300 MG CAP PO SCH ×2 (08:15→22:17)
[2020-03-21] MEDS: Carvedilol 6.25 MG TAB PO SCH ×2 (08:15→16:13)
[2020-03-21] MEDS: Gabapentin 300 MG CAP PO SCH ×3 (08:16→22:17)
[2020-03-21] MEDS: risperiDONE 0.25 MG TAB PO SCH ×2 (08:16→22:18)
[2020-03-21] MEDS: Heparin 5,000 UNITS/ML VIAL SC SCH ×3 (08:16→22:15)
[2020-03-21] MEDS: predniSONE 20 MG TAB PO SCH (08:16)
[2020-03-21] MEDS ORDERED: TICAGRELOR 90 MG TABLET PO SCH (09:00)
[2020-03-21] MEDS: hydrALAZINE 20 MG/ML VIAL SLOW IVP PRN (09:14)
[2020-03-21] MEDS: hydrALAZINE 25 MG TAB PO SCH ×2 (09:14→22:11)
[2020-03-21] MEDS: TICAGRELOR 90 MG TABLET PO SCH ×2 (09:15→22:17)
--- NOTE | 2020-03-21 13:12 | PDOC.CPN ---
- Subjective Date: 03/21/20 Time: 13:10 Interval history: Extubated now. Still SOB but sating well on supplemental O2 by NC. No chest pain. Still confused. - Review of Systems ROS unobtainable: due to mental status - Objective Allergies/Adverse Reactions: Allergies Allergy/AdvReac Type Severity Reaction Status Date / Time No Known Allergies Allergy Unverified 03/17/20 16:44 Visit Medications: Current Medications Albuterol/Ipratropium (Duoneb) 3 ml NEB [id number] [facility] Last Admin: 03/21/20 12:46 Dose: 3 ml Albuterol/Ipratropium (Duoneb) 3 ml NEB Q6H PRN PRN Reason: SOB &/or Wheezing Atorvastatin Calcium (Lipitor) 40 mg PO HS [facility] Last Admin: 03/20/20 20:27 Dose: 40 mg Bisacodyl (Dulcolax) 10 mg PO DAILYPRN PRN PRN Reason: Constipation Carvedilol (Coreg) 12.5 mg PO BID-WM [facility] Last Admin: 03/21/20 08:15 Dose: 12.5 mg Cefdinir (Omnicef) 300 mg PO BID [facility] Last Admin: 03/21/20 08:15 Dose: 300 mg Duloxetine HCl (Cymbalta) 60 mg PO DAILY [facility] Last Admin: 03/21/20 08:15 Dose: 60 mg Furosemide (Lasix) 40 mg PO DAILY-AC [facility] Last Admin: 03/20/20 10:33 Dose: Not Given Gabapentin (Neurontin) 600 mg PO TID [facility] Last Admin: 03/21/20 08:16 Dose: 600 mg Haloperidol Lactate (Haldol) 5 mg SLOW IVP Q4H PRN PRN Reason: Agitation Last Admin: 03/20/20 17:26 Dose: 5 mg Heparin Sodium (Porcine) (Heparin) 5,000 units SC TID [facility] Last Admin: 03/21/20 08:16 Dose: 5,000 units Hydralazine HCl (Apresoline) 10 mg SLOW IVP Q4H PRN PRN Reason: Blood Pressure Last Admin: 03/21/20 09:14 Dose: 10 mg Hydralazine HCl (Apresoline) 50 mg PO BID [facility] Last Admin: 03/21/20 09:14 Dose: 50 mg Dexmedetomidine HCl 400 mcg/ (Sodium Chloride) 100 mls @ 0 mls/hr IVPB INF [facility] ; Protocol Last Admin: 03/20/20 20:41 Dose: 100 mls Magnesium Hydroxide (Milk Of Magnesium) 30 ml PO Q8H PRN PRN Reason: Constipation Pantoprazole Sodium (Protonix) 40 mg PO BID [facility] Last Admin: 03/21/20 08:16 Dose: 40 mg Prednisone (Prednisone) 20 mg PO QAM-WM [facility] Last Admin: 03/21/20 08:16 Dose: 20 mg Risperidone (Risperidone) 0.25 mg PO BID [facility] Last Admin: 03/21/20 08:16 Dose: 0.25 mg Sterile Water (Bacteriostatic Water) 1 ml FS PRN PRN PRN Reason: RECONSTITUTION Ticagrelor (Brilinta) 90 mg PO BID [facility] Last Admin: 03/21/20 09:15 Dose: 90 mg Vital Signs & Weight: Vital Signs Temp Pulse Resp BP BP BP Pulse Ox 03/21/20 12:46 80 20 99 03/21/20 12:00 97.5 F L 03/21/20 11:34 135/84 130/78 03/21/20 09:14 84 171/104 H 03/21/20 08:15 164/122 H 03/21/20 08:00 97.7 F 100 03/21/20 07:32 69 16 98 03/21/20 04:00 97.7 F Weight 220 lb 14.451 oz - Physical Exam General: no apparent distress HEENT: mucus membranes moist Neck: supple neck Cardiac: regular rate and rhythm Lungs: normal breath sounds Neuro: no lateralizing findings Abdomen: active bowel sounds Extremities: 1+ LE edema Skin: clear Musculoskeletal: no pain - Labs Result Diagrams: 03/21/20 03:50 03/21/20 03:50 Troponin/CKMB CK-MB (CK-2) 2.8 ng/mL (0-6.6) 03/17/20 15:02 Troponin I 0.073 ng/mL (< 0.028) H 03/17/20 20:02 - Telemetry Sinus rhythms and dysrhythmias: sinus rhythm - Assessment/Plan Assessment/Plan: 1. Pneumoina 2. CAD 3. Dilated CM Ef at 20-25% 4. Sinus bradycardia, resolved. PLAN: - Continue to hold Coreg for now. - Continue current lasix dose. - Ok to transfer to [facility] floor.
--- NOTE | 2020-03-21 14:15 | PRG ---
DATE OF SERVICE: 03/21/2020 SUBJECTIVE: Cole Huynh is hemodynamically stable. He has nasal cannula oxygen in place. OBJECTIVE: VITAL SIGNS: He is afebrile. Heart rate is 80, respiratory rate is 20, oximetry is 99% on 3 L, blood pressure 130/78. LUNGS: Clear anteriorly. HEART: Regular rhythm. ABDOMEN: Soft. EXTREMITIES: Without asymmetry or edema. LABORATORY DATA: White count 8.3, hemoglobin 9.4, platelets 189. Sodium 138, potassium 4.5, chloride 111, bicarb 18, BUN 64, creatinine 2.22. Per his recollection, his BUN and creatinine are close to his baseline. IMPRESSION: 1. Systolic cardiomyopathy with an ejection fraction of 20% to 25%. 2. Coronary artery disease with history of stenting. 3. Chronic kidney disease, near his baseline. 4. Chronic obstructive pulmonary disease. 5. Improved encephalopathy. He appears to be stable, but will still need to be watched closely. Cardiology will decide about diuresis. We will continue to follow. Job ID: [id number]
[2020-03-21] MEDS ORDERED: Furosemide 40 MG TAB PO SCH (15:15)
[2020-03-21] MEDS: Atorvastatin Calcium 40 MG TAB PO SCH (22:18)
[2020-03-22] MEDS: hydrALAZINE 20 MG/ML VIAL SLOW IVP PRN ×2 (00:48→18:28)
[2020-03-22 05:14] LABS: #Eosinphils 0.3 thou/uL (0.0-0.7); #Lymphocytes 0.9 thou/uL (1.20-3.40); #Monocytes 1.1 thou/uL (0.11-0.59); #Neutrophils 10.3 thou/uL (1.40-6.50); %Basophils 0.1 % (0.0-1.0); %Lymphocytes 6.9 % (21.0-51.0); %Monocytes 8.9 % (0.0-10.0); %Neutrophils 82.2 % (42.0-75.0); Hemoglobin 10.1 g/dL (14.0-18.0); Mean Corpuscular Hemoglobin 24.1 pg (27.0-31.0); Mean Corpuscular Volume 80.5 fL (78.0-98.0); Mean Platelet Volume 10.8 fL (7.4-10.4); Platelet Count 228 thou/uL (130-400); RBC Distribution Width 18.6 % (11.5-14.5); Red Blood Cell (RBC) Count 4.18 mill/uL (4.70-6.10); White Blood Cell (WBC) Count 12.5 thou/uL (4.8-10.8)
[2020-03-22 05:35] LABS: ALT (SGPT) 50 U/L (8-55); AST (SGOT) 30 U/L (5-34); Albumin 3.4 g/dL (3.5-5.0); Alkaline Phosphatase 106 U/L (40-110); Anion Gap 13 mmol/L (10-20); BUN (Urea Nitrogen) 52 mg/dL (8.4-25.7); Bilirubin, Total 0.9 mg/dL (0.2-1.2); Calc. Creatinine Clearance 56 mL/min (70-130); Calcium 8.4 mg/dL (7.8-10.44); Carbon Dioxide 18 mmol/L (22-29); Chloride 108 mmol/L (98-107); Estimated GFR-MDRD 33; Globulin 3.4 g/dL (2.4-3.5); Glucose 95 mg/dL (70-105); Potassium 4.1 mmol/L (3.5-5.1); Protein, Total 6.8 g/dL (6.0-8.3); Sodium 135 mmol/L (136-145)
[2020-03-22] MEDS: Carvedilol 6.25 MG TAB PO SCH ×2 (09:05→16:54)
[2020-03-22] MEDS: DULoxetine 60 MG CAP PO SCH (09:05)
[2020-03-22] MEDS: risperiDONE 0.25 MG TAB PO SCH ×2 (09:06→21:16)
[2020-03-22] MEDS: hydrALAZINE 25 MG TAB PO SCH ×2 (09:06→21:17)
[2020-03-22] MEDS: TICAGRELOR 90 MG TABLET PO SCH ×2 (09:06→21:17)
[2020-03-22] MEDS: Heparin 5,000 UNITS/ML VIAL SC SCH ×3 (09:07→21:16)
[2020-03-22] MEDS: predniSONE 20 MG TAB PO SCH (09:07)
[2020-03-22] MEDS: Gabapentin 300 MG CAP PO SCH ×3 (09:07→21:16)
[2020-03-22] MEDS: Furosemide 40 MG TAB PO SCH (09:12)
[2020-03-22] MEDS ORDERED: Cefdinir 300 MG CAP PO SCH (09:15)
--- NOTE | 2020-03-22 17:12 | PDOC.HOSPP ---
- Subjective Encounter Date: 03/22/20 Encounter Time: 09:00 Subjective: no overnight events. this morning, feeling well and has no complaints. Pending lifevest placement - Objective Vital Signs & Weight: Vital Signs (12 hours) Temp Pulse Resp BP Pulse Ox 03/22/20 13:56 75 15 03/22/20 11:54 97.7 F 81 16 157/76 H 96 03/22/20 08:57 97.4 F L 89 12 184/95 H 98 03/22/20 06:56 78 16 Weight Weight 210 lb 12.8 oz Most Recent Monitor Data Heart Rate from ECG 71 NIBP 130/78 NIBP BP-Mean 95 Respiration from ECG 16 SpO2 96 I&O: 03/21/20 03/22/20 03/23/20 06:59 06:59 06:59 Intake Total 808.9 1180 Output Total 1700 5350 1300 Balance -891.1 -4170 -1300 Result Diagrams: 03/22/20 04:37 03/22/20 04:37 Hospitalist ROS - Review of Systems Constitutional: denies: fever, chills, sweats Respiratory: denies: cough, dry, shortness of breath Cardiovascular: denies: chest pain, palpitations, orthopnea Gastrointestinal: denies: nausea, vomiting, abdominal pain Genitourinary: denies: hematuria - Medication Medications: Active Medications Generic Name Dose Route Start Last Admin Trade Name Freq PRN Reason Stop Dose Admin Albuterol/Ipratropium 3 ml 03/17/20 19:00 03/22/20 13:56 Duoneb NEB 3 ml [id number] TITUS Administration Atorvastatin Calcium 40 mg 03/19/20 21:00 03/21/20 22:18 Lipitor PO 40 mg HS TITUS Administration Carvedilol 12.5 mg 03/21/20 08:00 03/22/20 16:54 Coreg PO 12.5 mg BID-WM TITUS Administration Cefdinir 300 mg 03/19/20 09:00 03/21/20 22:17 Omnicef PO 300 mg BID TITUS Administration Duloxetine HCl 60 mg 03/19/20 09:00 03/22/20 09:05 Cymbalta PO 60 mg DAILY TITUS Administration Furosemide 40 mg 03/20/20 07:30 03/20/20 10:33 Lasix PO Not Given DAILY-AC TITUS Furosemide 40 mg 03/22/20 09:00 03/22/20 09:12 Lasix PO 40 mg DAILY TITUS Administration Gabapentin 600 mg 03/18/20 21:00 03/22/20 16:00 Neurontin PO 600 mg TID TITUS Administration Haloperidol Lactate 5 mg 03/18/20 12:27 03/20/20 17:26 Haldol SLOW IVP 5 mg Q4H PRN Administration Agitation Heparin Sodium (Porcine) 5,000 units 03/17/20 21:00 03/22/20 16:00 Heparin SC 5,000 units TID TITUS Administration Hydralazine HCl 10 mg 03/19/20 12:23 03/22/20 00:48 Apresoline SLOW IVP 10 mg Q4H PRN Administration Blood Pressure Hydralazine HCl 50 mg 03/19/20 21:00 03/22/20 09:06 Apresoline PO 50 mg BID TITUS Administration Pantoprazole Sodium 40 mg 03/18/20 21:00 03/22/20 09:07 Protonix PO 40 mg BID TITUS Administration Prednisone 20 mg 03/20/20 08:00 03/22/20 09:07 Prednisone PO 20 mg QAM-WM TITUS Administration Risperidone 0.25 mg 03/19/20 21:00 03/22/20 09:06 Risperidone PO 0.25 mg BID TITUS Administration Ticagrelor 90 mg 03/21/20 09:00 03/22/20 09:06 Brilinta PO 90 mg BID TITUS Administration - Exam General Appearance: NAD, awake alert Neck: no JVD Heart: RRR, no murmur, no gallops, no rubs Respiratory: CTAB, no wheezes, no rales, no ronchi Gastrointestinal: soft, non-tender, non-distended, normal bowel sounds Extremities: 1+ LE edema Extremities - other findings: to midtibial level Psychiatric: normal affect, normal behavior, A&O x 3 Hosp A/P - Plan #HFrEF 20-25% -cardiology onboard; pending lifevest -continue lasix as per cardiology #HTN #CKD -uremia improving #agitation -increased risperidone and reduced haldol IVP in attempt to wean off haldol #disposition discharge pending lifevest ELOS: 1 night
[2020-03-22] MEDS ORDERED: Haloperidol Lactate 5 MG/ML VIAL SLOW IVP PRN (17:17)
--- NOTE | 2020-03-22 18:13 | PDOC.CPN ---
- Subjective Date: 03/22/20 Time: 18:12 Interval history: No new issues., More awake today, able to follow commands. - Review of Systems General: denies: fever/chills, weight/appetite/sleep changes, night sweats, fatigue Respiratory: denies: cough, congestion, shortness of breath, exercise intolerance Cardiovascular: denies: chest pain, palpitation, edema, paroxysmal nocturnal dyspnea, orthopnea Gastrointestinal: denies: nausea, vomiting, diarrhea, constipation, abd pain, GI bleeding Musculoskeletal: denies: pain, tenderness, stiffness, swelling, arthritis/ arthralgias Neurological: denies: numbness, syncope, seizure, weakness - Objective Allergies/Adverse Reactions: Allergies Allergy/AdvReac Type Severity Reaction Status Date / Time No Known Allergies Allergy Unverified 03/17/20 16:44 Visit Medications: Current Medications Albuterol/Ipratropium (Duoneb) 3 ml NEB [id number] [facility] Last Admin: 03/22/20 13:56 Dose: 3 ml Albuterol/Ipratropium (Duoneb) 3 ml NEB Q6H PRN PRN Reason: SOB &/or Wheezing Atorvastatin Calcium (Lipitor) 40 mg PO HS [facility] Last Admin: 03/21/20 22:18 Dose: 40 mg Bisacodyl (Dulcolax) 10 mg PO DAILYPRN PRN PRN Reason: Constipation Carvedilol (Coreg) 12.5 mg PO BID-WM [facility] Last Admin: 03/22/20 16:54 Dose: 12.5 mg Cefdinir (Omnicef) 300 mg PO BID [facility] Last Admin: 03/21/20 22:17 Dose: 300 mg Duloxetine HCl (Cymbalta) 60 mg PO DAILY [facility] Last Admin: 03/22/20 09:05 Dose: 60 mg Furosemide (Lasix) 40 mg PO DAILY-AC [facility] Last Admin: 03/20/20 10:33 Dose: Not Given Furosemide (Lasix) 40 mg PO DAILY [facility] Last Admin: 03/22/20 09:12 Dose: 40 mg Gabapentin (Neurontin) 600 mg PO TID [facility] Last Admin: 03/22/20 16:00 Dose: 600 mg Haloperidol Lactate (Haldol) 2 mg SLOW IVP Q4H PRN PRN Reason: Agitation Heparin Sodium (Porcine) (Heparin) 5,000 units SC TID [facility] Last Admin: 03/22/20 16:00 Dose: 5,000 units Hydralazine HCl (Apresoline) 10 mg SLOW IVP Q4H PRN PRN Reason: Blood Pressure Last Admin: 03/22/20 00:48 Dose: 10 mg Hydralazine HCl (Apresoline) 50 mg PO BID [facility] Last Admin: 03/22/20 09:06 Dose: 50 mg Magnesium Hydroxide (Milk Of Magnesium) 30 ml PO Q8H PRN PRN Reason: Constipation Pantoprazole Sodium (Protonix) 40 mg PO BID [facility] Last Admin: 03/22/20 09:07 Dose: 40 mg Prednisone (Prednisone) 20 mg PO QAM-WM [facility] Last Admin: 03/22/20 09:07 Dose: 20 mg Risperidone (Risperidone) 0.5 mg PO BID [facility] Sterile Water (Bacteriostatic Water) 1 ml FS PRN PRN PRN Reason: RECONSTITUTION Ticagrelor (Brilinta) 90 mg PO BID [facility] Last Admin: 03/22/20 09:06 Dose: 90 mg Vital Signs & Weight: Vital Signs Temp Pulse Resp BP Pulse Ox 03/22/20 16:00 98.2 F 65 18 211/117 H 98 03/22/20 13:56 75 15 03/22/20 11:54 97.7 F 81 16 157/76 H 96 03/22/20 08:57 97.4 F L 89 12 184/95 H 98 03/22/20 06:56 78 16 Weight 210 lb 12.8 oz - Physical Exam General: appears well HEENT: mucus membranes moist Neck: supple neck Cardiac: regular rate and rhythm Lungs: clear to auscultation Neuro: grossly intact Abdomen: active bowel sounds Extremities: no edema Skin: clear Musculoskeletal: no pain - Labs Result Diagrams: 03/22/20 04:37 03/22/20 04:37 Troponin/CKMB CK-MB (CK-2) 2.8 ng/mL (0-6.6) 03/17/20 15:02 Troponin I 0.073 ng/mL (< 0.028) H 03/17/20 20:02 - Telemetry Sinus rhythms and dysrhythmias: sinus rhythm - Assessment/Plan Assessment/Plan: 1. Pneumoina 2. CAD 3. Dilated CM Ef at 20-25% 4. Sinus bradycardia, resolved. PLAN: - Will start very low dose coreg. - Continue current lasix dose. - Will need Lifevest before discharge. Spoke to him about this and he agrees.
--- NOTE | 2020-03-22 18:26 | PRG ---
DATE OF SERVICE: 03/22/2020 OBJECTIVE: VITAL SIGNS: Cole Huynh is afebrile, heart rate is in 60s, respiratory rates in the teens, oximetry is 96% to 98% on room air, blood pressure 157/76 just before lunch. LUNGS: Clear. HEART: Regular rhythm. ABDOMEN: Soft. EXTREMITIES: Without edema. LABORATORY DATA: White count 12.5, hemoglobin 10.1, platelets 228. Creatinine is 2.06, it was 2.22 yesterday, 2.47 the day before. IMPRESSION: 1. Systolic cardiomyopathy. 2. Acute on chronic kidney disease, improving. 3. Deconditioning. 4. History of coronary stenting. 5. Chronic obstructive pulmonary disease with no bronchospasm at this time. 6. Improving encephalopathy, still mildly encephalopathic. We will follow. Job ID: [id number]
[2020-03-22] MEDS: Cefdinir 300 MG CAP PO SCH (21:16)
[2020-03-22] MEDS: Atorvastatin Calcium 40 MG TAB PO SCH (21:16)
[2020-03-23] MEDS: hydrALAZINE 20 MG/ML VIAL SLOW IVP PRN (03:18)
[2020-03-23 05:06] LABS: #Eosinphils 0.2 thou/uL (0.0-0.7); #Lymphocytes 0.5 thou/uL (1.20-3.40); #Monocytes 0.9 thou/uL (0.11-0.59); #Neutrophils 10.1 thou/uL (1.40-6.50); %Eosinophils 1.6 % (0.0-10.0); %Lymphocytes 4.2 % (21.0-51.0); %Monocytes 7.5 % (0.0-10.0); %Neutrophils 86.7 % (42.0-75.0); Hemoglobin 10.8 g/dL (14.0-18.0); Mean Corpuscular HGB CONC 31.7 g/dL (32.0-36.0); Mean Corpuscular Hemoglobin 25.2 pg (27.0-31.0); Mean Corpuscular Volume 79.4 fL (78.0-98.0); Mean Platelet Volume 10.7 fL (7.4-10.4); Platelet Count 205 thou/uL (130-400); RBC Distribution Width 18.8 % (11.5-14.5); Red Blood Cell (RBC) Count 4.29 mill/uL (4.70-6.10); White Blood Cell (WBC) Count 11.6 thou/uL (4.8-10.8)
[2020-03-23 05:08] LABS: Anion Gap 13 mmol/L (10-20); BUN (Urea Nitrogen) 41 mg/dL (8.4-25.7); Calc. Creatinine Clearance 55 mL/min (70-130); Calcium 8.6 mg/dL (7.8-10.44); Carbon Dioxide 20 mmol/L (22-29); Chloride 106 mmol/L (98-107); Estimated GFR-MDRD 36; Glucose 93 mg/dL (70-105); Magnesium 1.9 mg/dL (1.6-2.6); Sodium 135 mmol/L (136-145)
[2020-03-23] MEDS ORDERED: Electrolyte Replacement Protoc 1 EACH EACH IVPB PRN (05:52)
[2020-03-23] MEDS ORDERED: Magnesium 2 GM/50 ML 2 GM in Premix Bag 1 BAG IVPB SCH (06:30)
[2020-03-23 07:47] VITALS: BP 167/106; TEMP 99.4
[2020-03-23] MEDS: Heparin 5,000 UNITS/ML VIAL SC SCH (08:35)
[2020-03-23] MEDS: hydrALAZINE 25 MG TAB PO SCH (08:35)
[2020-03-23] MEDS: Cefdinir 300 MG CAP PO SCH (08:35)
[2020-03-23] MEDS: Gabapentin 300 MG CAP PO SCH (08:36)
[2020-03-23] MEDS: predniSONE 20 MG TAB PO SCH (08:36)
[2020-03-23] MEDS: TICAGRELOR 90 MG TABLET PO SCH (08:37)
[2020-03-23] MEDS: Carvedilol 6.25 MG TAB PO SCH (08:37)
[2020-03-23] MEDS: risperiDONE 0.25 MG TAB PO SCH (08:38)
[2020-03-23] MEDS: DULoxetine 60 MG CAP PO SCH (08:38)
[2020-03-23] MEDS: Furosemide 40 MG TAB PO SCH ×2 (08:40→09:39)
[2020-03-23] MEDS ORDERED: Furosemide 40 MG/4 ML VIAL SLOW IVP SCH ×2 (09:45→10:00)
--- NOTE | 2020-03-23 11:12 | PRG ---
DATE OF SERVICE: 03/23/2020 SUBJECTIVE: Cole Huynh is in room 261, is a 59-year-old gentleman came to see him this morning, he just left AMA about 10:30. He was a transfer from [place], [place]. ASSESSMENT: Respiratory failure with a diagnosis of congestive heart failure, chronic obstructive pulmonary disease, and metabolic encephalopathy. Job ID: [id number]
--- NOTE | 2020-03-23 23:41 | DIS ---
DATE OF ADMISSION: 03/17/2020 DATE OF DISCHARGE: 03/23/2020 HOSPITAL COURSE: Mr. Huynh is a 59-year-old male with a medical history of hypertension, myocardial infarction, and heart failure, who presented with shortness of breath. He was diagnosed with influenza B pneumonia and decompensated heart failure. He was intubated prior to arriving to the hospital and was admitted to the ICU. There, he was diuresed and improved promptly. However, he was combative throughout his ICU stay and required initiation of antipsychotics by the ICU physicians. Echocardiography found an ejection fraction of 20% to 25% and Cardiology recommended that the patient receive LifeVest. However, the patient refused the LifeVest and decided to leave [place]. PHYSICAL EXAMINATION: VITAL SIGNS: Blood pressure 167/106, temperature 99.4, pulse 93, respiratory rate 16, oxygen saturation 97% on room air. GENERAL: Lying in bed, awake and alert, in mild distress due to dyspnea. HEENT: Normocephalic, atraumatic. No JVD. HEART: Regular rate and rhythm. No murmurs, gallops, or rubs. LUNGS: Diffuse mid and lower field rales. During conversation, the patient purses his lips to breathe. ABDOMEN: Soft, nontender, nondistended. Normal bowel sounds. EXTREMITIES: Bilateral mid tibial pitting edema. PSYCHIATRIC: Mildly agitated. Alert and oriented x3. MEDICATION LIST: New medications: 1. Coreg 12.5 b.i.d. 2. Lasix 40 mg daily. 3. Risperidone 0.5 b.i.d. Discontinued medications: 1. Nifedipine. 2. Coreg 25 mg b.i.d. 3. Lasix 30 mg b.i.d. 4. Hydroxyzine 25 mg q.i.d. p.r.n. anxiety. Continued medications: 1. Ticagrelor. 2. Ipratropium and albuterol. 3. Gabapentin. 4. Anoro Ellipta. 5. Pantoprazole. 6. Atorvastatin. 7. Duloxetine. Job ID: [id number]
== END 2020-03-23 10:25 | disposition left against medical advice (07) | DRG 208 ==
LOC: ERS 13:34 → CCU 16:46 → 2NO 03-21 15:42
PROVIDERS: ADMIT Internal Medicine; ATTEND Internal Medicine
PROC: 0BH17EZ Insertion of Endotracheal Airway into Trachea, Via Natural or Artificial Opening (ICD-10-PCS; principal; 2020-03-17)
PROC: 5A1945Z Respiratory Ventilation, 24-96 Consecutive Hours (ICD-10-PCS; 2020-03-17)
PROC: 5A09457 Assistance with Respiratory Ventilation, 24-96 Consecutive Hours, Continuous Positive Airway Pressure (ICD-10-PCS; 2020-03-19)
DX: J96.01 Acute respiratory failure with hypoxia (principal); J10.01 Influenza due to other identified influenza virus with the same other identified influenza virus pneumonia; G93.41 Metabolic encephalopathy; I50.23 Acute on chronic systolic (congestive) heart failure; I13.0 Hypertensive heart and chronic kidney disease with heart failure and stage 1 through stage 4 chronic kidney disease, or unspecified chronic kidney disease; I24.8 Other forms of acute ischemic heart disease; J44.0 Chronic obstructive pulmonary disease with (acute) lower respiratory infection; I42.0 Dilated cardiomyopathy; J96.02 Acute respiratory failure with hypercapnia; Z20.828 Contact with and (suspected) exposure to other viral communicable diseases; D63.1 Anemia in chronic kidney disease; R00.1 Bradycardia, unspecified; I25.10 Atherosclerotic heart disease of native coronary artery without angina pectoris; N18.3 Chronic kidney disease, stage 3 (moderate); E78.5 Hyperlipidemia, unspecified; F17.210 Nicotine dependence, cigarettes, uncomplicated; Z95.5 Presence of coronary angioplasty implant and graft; I25.2 Old myocardial infarction; Z90.49 Acquired absence of other specified parts of digestive tract
CPT/HCPCS: 36415; 71045; 71275; 74177; 80048; 80053; 81003; 81015; 82553; 82805; 83605; 83735; 83880; 84443; 84484; 85025; 87086; 87804; 93005; 93010; 93306; 94002; 94003; 94640; 94660; 94760; 96361; 96365; 96366; 96368; 96374; 96376; 99292; J0360; J0456; J0696; J1630; J1644; J2060; J2543; J2920; J3010; J3475; J3490; J7050; J7512; J7620; Q9967; S0028; U0002